=== PATIENT | female | born 1955 | race Caucasian/White ===

== ENCOUNTER 2020-05-29 07:09 | Emergency (ER) | payer MEDICARE, OTHER ==
[~2020-05-29] VITALS: Ht 157.5 cm; Wt 91.2 kg
[~2020-05-29 07:09] MED LIST: ALBU6.7H8 INH; ESOM40CA PO; LORA1TAB46 PO; MONT10TA11 PO
[2020-05-29 07:12] VITALS: BP 158/70
--- NOTE | 2020-05-29 07:41 | NUR ---
PT AMBULATORY TO ROOM 21 W/ C/O ABD PAIN/CRAMPING. PT STATES SHE HAD A LAP HERNIA REPAIR TUESDAY W/ DR. DE GUZMAN AND HAS HAD PAIN CRAMPING SINCE MAINLY TO L MIDDLE AND LLQ ABD PAIN. PT NOTED TO HAVE 5 LAP WOUNDS TO ABDOMEN. FIRMNESS NOTED TO MID UPPER ABDOMEN. PT RESTING ON GURNEY. AURELIA.
[2020-05-29 08:02] LABS: BASOPHILS % (AUTO) 1 % (0-1); EOSINOPHILS % (AUTO) 2 % (1-7); LYMPHOCYTES % (AUTO) 13 % (22-44); MEAN CORPUSCULAR HEMOGLOBIN 29.4 pg (27.0-34.8); MEAN CORPUSCULAR HGB CONC 33.3 g/dL (32.4-35.8); MEAN PLATELET VOLUME 9.4 fL (7.4-10.4); MONOCYTES % (AUTO) 6 % (2-9); NEUTROPHILS % (AUTO) 78 % (42-75); PLATELET COUNT 271 x10^3/uL (130-400); RED BLOOD COUNT 4.62 x10^6/uL (3.82-5.3); RED CELL DISTRIBUTION WIDTH 14.1 % (9.6-15.2)
[2020-05-29 08:13] LABS: ALANINE AMINOTRANSFERASE 225 U/L (12-78); ALBUMIN 3.7 g/dL (3.4-5.0); ANION GAP 8 mmol/L (5-15); CALCIUM 9.3 mg/dL (8.5-10.1); CHLORIDE 104 mmol/L (98-107); CREATININE 1.13 mg/dL (0.55-1.02)
[2020-05-29 08:15] LABS: ALKALINE PHOSPHATASE 124 U/L (45-117); BILIRUBIN,TOTAL 0.9 mg/dL (0.2-1.0); TOTAL PROTEIN 8.1 g/dL (6.4-8.2)
[2020-05-29 08:20] LABS: MD NO
[2020-05-29 08:25] LABS: MICROSCOPIC INDICATED
--- NOTE | 2020-05-29 08:26 | NUR ---
ATTEMPTED TO OBTAIN VS. REFUSES TO HAVE BP TAKEN DESPITE EDUCATION ON NEED FOR VS Q1H. MARTIR DAMON NOTIFIED.
[2020-05-29] MEDS ORDERED: OMNIPAQUE 350 MG/ML, 100ML BOTTLE ONE (09:00)
--- NOTE | 2020-05-29 09:28 | NUR ---
PT RESTING ON JESSE. VSS. CONTINUES TO REFUSE BP CUFF.
== END 2020-05-29 11:04 | disposition home or self-care (01) ==
LOC: ED 08:30
DX: K21.9 Gastro-esophageal reflux disease without esophagitis (principal); K56.0 Paralytic ileus; R10.84 Generalized abdominal pain; R10.9 Unspecified abdominal pain; J45.909 Unspecified asthma, uncomplicated
CPT/HCPCS: 36415; 71260; 74022; 74177; 80053; 81001; 83690; 85025; 87077; 87086; 87186; 99285; Q9967

== ENCOUNTER → 2020-11-11 | Outpatient (CLI) | payer MEDICARE, OTHER ==
[~2020-11-11] MED LIST changes: -MONT10TA11 PO; +MONT10TA17 PO; +OMNIPAQUE 350 MG/ML, 100ML BOTTLE ONE
== END | disposition home or self-care (01) ==
LOC: CFH 13:23
PROVIDERS: ATTEND Surgery
DX: R10.11 Right upper quadrant pain (principal); R10.13 Epigastric pain
CPT/HCPCS: 74177; 82565; Q9967